=== PATIENT | female | born 1955 | race Caucasian/White ===

== ENCOUNTER → 2017-01-14 | Outpatient (CLI) | payer BC ==
--- NOTE | 2017-01-14 13:35 | MAMMOGRAPHY REPORT ---
BILATERAL DIGITAL SCREENING MAMMOGRAM TOMOSYNTHESIS WITH CAD: 01/14/2017 CLINICAL HISTORY: Asymptomatic. Personal history of breast cancer. TECHNIQUE: Breast tomosynthesis in addition to standard 2D mammography was performed. Current study was also evaluated with a Computer Aided Detection (CAD) system. COMPARISON: Comparison is made to exams dated: 01/12/2016 mammogram, 01/06/2015 mammogram, 4 mammogram, 12/24/2012 mammogram, 12/20/2011 mammogram, and 12/18/2010 mammogram - [facility]. BREAST COMPOSITION: There are scattered areas of fibroglandular density in both breasts. FINDINGS: There is expected architectural distortion, surgical clips and stable benign-appearing calc ifications at the surgical site in the 12:00 middle and posterior right breast. No new suspicious mas s, architectural distortion or cluster of microcalcifications is seen bilaterally. IMPRESSION: ACR BI-RADS CATEGORY 2: BENIGN There is no mammographic evidence of malignancy. A 1 year screening mammogram is recommended. The pa tient will receive written notification of the results. Approximately 10% of breast cancers are not detected with mammography. A negative mammographic report should not delay biopsy if a clinically suggestive mass is present. Bailey Espinoza M.D. ay/:01/14/2017 09:16:27 Environmental Studies Program Director: Mary SILVA(Ruth)(M), [facility] letter sent: Normal 1/2 BI-RADS Code: ACR BI-RADS Category 2: Benign
== END | disposition home or self-care (01) ==
LOC: C.MAMM 08:05
PROVIDERS: ATTEND Internal Medicine Hematology
DX: Z12.31 Encounter for screening mammogram for malignant neoplasm of breast (principal); Z85.3 Personal history of malignant neoplasm of breast

== ENCOUNTER 2017-04-10 10:58 | Emergency (ER) | payer BC, OTHER ==
[~2017-04-10] VITALS: Ht 160 cm; Wt 66.0 kg
[2017-04-10 11:00] VITALS: TEMP 36.7; Ht 160 cm; Wt 66.0 kg
[2017-04-10] MEDS ORDERED: LEVO100T PO (11:26)
[2017-04-10] MEDS ORDERED: SIMV40TA2 PO (11:26)
[2017-04-10] MEDS ORDERED: IBUPROFEN 600 MG TAB PO STA (11:34)
--- NOTE | 2017-04-10 12:04 | DIAGNOSTIC IMAGING REPORT ---
R HAND MIN 3 VIEWS ROUTINE CLINICAL HISTORY: Right hand pain status post trauma COMPARISON: None. DISCUSSION: The bones are osteopenic. There is acute intra-articular fracture involving the base of the second metacarpal. There are mild to moderate diffuse degenerative changes. IMPRESSION: Acute intra-articular fracture involving the base of the second metacarpal. Electronically signed by: Rian Warren M.D. 04/10/2017 12:02 PM Dictated Date/Time: 04/10/2017 12:01 PM
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
[2017-04-10 12:38] VITALS: BP 155/57; PULSE 62; O2SAT 100
[2017-04-10] MEDS ORDERED: OXYC-57 PO (12:48)
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
== END 2017-04-10 13:02 | disposition home or self-care (01) ==
LOC: C.EDB 10:59 → C.EDD 13:02
DX: S62.310A Displaced fracture of base of second metacarpal bone, right hand, initial encounter for closed fracture (principal); S62.141A Displaced fracture of body of hamate [unciform] bone, right wrist, initial encounter for closed fracture; V44.5XXA Car driver injured in collision with heavy transport vehicle or bus in traffic accident, initial encounter; E03.9 Hypothyroidism, unspecified; E78.5 Hyperlipidemia, unspecified

== ENCOUNTER → 2017-04-18 | Outpatient (CLI) | payer OTHER ==
[~2017-04-18] MED LIST: LEVO100T PO; OXYC-57 PO; SIMV40TA2 PO
== END | disposition home or self-care (01) ==
LOC: C.RDSM 10:00
PROVIDERS: ATTEND Orthopaedic Surgery Sports Medicine
DX: S62.309A Unspecified fracture of unspecified metacarpal bone, initial encounter for closed fracture (principal); X58.XXXA Exposure to other specified factors, initial encounter

== ENCOUNTER → 2017-04-25 | Outpatient (CLI) | payer OTHER | END | disposition home or self-care (01) | LOC: C.RDSM 18:34 | PROVIDERS: ATTEND Orthopaedic Surgery Sports Medicine | DX: S62.300A Unspecified fracture of second metacarpal bone, right hand, initial encounter for closed fracture (principal); X58.XXXA Exposure to other specified factors, initial encounter ==

== ENCOUNTER → 2017-05-16 | Outpatient (CLI) | payer OTHER | END | disposition home or self-care (01) | LOC: C.RDSM 14:30 | PROVIDERS: ATTEND Orthopaedic Surgery Sports Medicine | DX: S62.301A Unspecified fracture of second metacarpal bone, left hand, initial encounter for closed fracture (principal); X58.XXXA Exposure to other specified factors, initial encounter ==

== ENCOUNTER → 2017-06-13 | Outpatient (CLI) | payer OTHER | END | disposition home or self-care (01) | LOC: C.RDSM 13:15 | PROVIDERS: ATTEND Orthopaedic Surgery Sports Medicine | DX: S62.309A Unspecified fracture of unspecified metacarpal bone, initial encounter for closed fracture (principal); X58.XXXA Exposure to other specified factors, initial encounter ==